=== PATIENT | male | born 1945 | race Caucasian/White ===

== ENCOUNTER 2019-05-25 10:02 | Emergency (ER) | payer MEDICARE, SELFPAY ==
[2019-05-25 10:05] VITALS: BP 111/86; PULSE 80; RESP 16; TEMP 36.8; O2SAT 96; BMI 27.4
--- NOTE | 2019-05-25 10:21 | RAD_ITS ---
STUDY: X-RAY - PELVIS REASON FOR EXAM: Male, 73 years old. PT FELL X 3 DAYS AGO, PAIN WITH MOVEMENT TECHNIQUE: One view of the pelvis was obtained. COMPARISON: None. FINDINGS: There is a non-specific bowel gas pattern. Normal visualized soft tissue structures. Normal bilateral iliac wings, sacroiliac joints and visualized sacrum. Normal visualized bilateral superior and inferior pubic rami. Normal pubic symphysis. Normal ischial tuberosities. Status post right hip arthroplasty. The prosthesis appears located. No ostial lysis to suggest loosening.. Normal visualized left femoral head. Normal left acetabulum. Normal left hip joint. RAD/Pelvis 1 or 2 Views IMPRESSION: Normal x-ray examination of the pelvis after right hip arthroplasty.. Electronically Signed: Paras Nathan MD at 11:53 EST Tel , Service support ,
--- NOTE | 2019-05-25 10:21 | RAD_ITS ---
STUDY: X-RAY - LEFT FEMUR REASON FOR STUDY: Male, 73 years old. PT FELL X 3 DAYS AGO, PAIN WITH MOVEMENT, H/O SX TECHNIQUE: 2 view(s) of the femur. COMPARISON: None. FINDINGS: Healed fracture the midshaft of the femur. Normal visualized soft tissue structure. RAD/Femur Min 2 Views IMPRESSION: No acute fracture or dislocation. Healed fracture the midshaft of the femur. Electronically Signed: Paras Nathan MD at 11:53 EST Tel , Service support ,
--- NOTE | 2019-05-25 11:49 | ED.VISSUMM ---
- ER Visit Summary Date of Service: 05/25/19 Chief Complaint: [Pain to left hip after a fall] History of Present Illness: The patient is a 73 M [does the emergency department with a fall that occurred 4 days ago. Patient states that he got tripped up by his walker and fell onto his left side. Patient struck his head but no loss of consciousness. Patient denies any neck pain. Patient states that he is able to bear weight but having pain and does not feel it is gotten much better. He denies any other injuries. Patient has had prior fracture to the left femur. She does have history of coronary artery disease, hypertension, and high cholesterol.] Physical Examination: [HEENT-PERRLA, EOMI. Cranial nerves II through XII grossly intact. TMs clear. Mucous membranes moist. No adenopathy. Cardiovascular-regular rate and rhythm without murmur or ectopy Lungs-clear to auscultation, chest wall stable without crepitus or subcu emphysema Abdomen-normoactive bowel sounds, soft, nontender, no rebound or rigidity, no peritoneal signs. Extremities-intact ?4, normal range of motion, normal pulses. Left hip-patient does have tenderness palpation over the hip joint without any evidence of ecchymosis or bruising. There is no hematoma. Minimal pain with range of motion. Neurovascular intact distally. No shortening or external rotation noted.] Test Results: [X-rays of the left femur and pelvis obtained read by myself as degenerative changes with no signs of fracture. Official report from radiology pending.] Emergency Department Course and Treatment: [] Treatment Plan: [Has oxycodone at home for pain. He is to continue with that. Patient to follow-up with his primary care physician in 5 to 7 days.] Disposition: Discharged home in stable condition] Impression: [Mechanical fall Contusion left hip] This note was generated with [employer] dictation software. It may contain incorrect words, spelling, and punctuation that were not noted in review of the chart prior to signing ED Disposition - Plan for ED Patient: Referrals: Mauro Palomino [Other]
--- NOTE | 2019-05-25 11:52 | ED.DEP ---
ED Disposition - Plan for ED Patient: Instructions: Hip Contusion Referrals: Mauro Palomino [Other] - 5-7 Days
[2019-05-25 12:27] VITALS: PULSE 82; RESP 16; RESP 18; O2SAT 97
== END 2019-05-25 12:29 | disposition home or self-care (01) ==
PROVIDERS: Emergency Provider Emergency Medicine
DX: S70.02XA Contusion of left hip, initial encounter (principal); W01.0XXA Fall on same level from slipping, tripping and stumbling without subsequent striking against object, initial encounter; Y93.89 Activity, other specified; Y92.9 Unspecified place or not applicable; I25.10 Atherosclerotic heart disease of native coronary artery without angina pectoris; I10 Essential (primary) hypertension; E78.00 Pure hypercholesterolemia, unspecified; Z95.1 Presence of aortocoronary bypass graft
CPT/HCPCS: 72170; 73552; 99282

== ENCOUNTER 2019-10-25 19:53 | Inpatient (IN) | payer MEDICARE, SELFPAY ==
[2019-10-25 20:11] VITALS: BP 123/56; PULSE 92; RESP 16; TEMP 36.8; O2SAT 97
[2019-10-25 21:08] VITALS: BMI 25.7
[2019-10-25 21:13] VITALS: BMI 25.7
[2019-10-25] MEDS: oxyCODONE 5 MG Tablet 10 MG PO (21:37)
--- NOTE | 2019-10-25 21:40 | NURSING ---
Patient wishes to be full code.
[2019-10-25] MEDS: Zolpidem Tartrate 5 MG Tablet PO (21:58)
--- NOTE | 2019-10-25 22:01 | PCM.HP.STD ---
Problem List (1) Debility Status: Acute (2) Post-traumatic osteoarthritis of left knee Status: Chronic (3) Muscle spasm Status: Chronic (4) Insomnia Status: Chronic (5) Tobacco abuse Status: Chronic (6) BPH (benign prostatic hyperplasia) Status: Chronic (7) Chronic pain Status: Chronic (8) Left foot drop Status: Chronic (9) Coronary artery disease Status: Chronic (10) Hypertension Status: Chronic (11) Hyperlipidemia Status: Chronic (12) GERD (gastroesophageal reflux disease) Status: Chronic History of Present Illness Date of Admission: 10/25/19 Chief Complaint: Here for rehabilitation, strengthening, prior to discharge home with family. The patient is a 74 year old Male with below past medical history significant for post-traumatic osteoarthritis of left knee. Pain progressively worse, failed conservative therapy, failed steroid injection. 10/20/2019 Dr. Estrada performed left total knee arthroplasty. Postoperative course uncomplicated. Past Medical History Past Medical History (Chronic Problems): Chronic Problems Post-traumatic osteoarthritis of left knee (Chronic) Muscle spasm (Chronic) Insomnia (Chronic) Tobacco abuse (Chronic) BPH (benign prostatic hyperplasia) (Chronic) Chronic pain (Chronic) Left foot drop (Chronic) Coronary artery disease (Chronic) Hypertension (Chronic) Hyperlipidemia (Chronic) GERD (gastroesophageal reflux disease) (Chronic) Allergies No Known Allergies Allergy (Verified 05/25/19 10:05) Home Medications: Ambulatory Orders Medication Instructions Recorded Atorvastatin Calcium 10 mg PO DAILY 05/25/19 Cyclobenzaprine HCl 10 mg PO Q8H PRN PRN 05/25/19 Metoprolol Tartrate 25 mg PO BID 05/25/19 Tamsulosin HCl 0.4 mg PO DAILY 05/25/19 Tizanidine HCl 4 mg PO BID 05/25/19 Zolpidem Tartrate [Ambien] 10 mg PO QHS 05/25/19 Aspirin E.C. [Ecotrin] 81 mg PO DAILY@0800 10/25/19 Docusate Sodium [Colace] 100 mg PO BID PRN PRN 10/25/19 Enoxaparin [Lovenox] 40 mg SQ DAILY 10/25/19 Indomethacin [Indomethacin ER] 75 mg PO DAILY 10/25/19 Multivitamin 1 ea PO DAILY 10/25/19 Prevacid 15mg 15 mg PO DAILY 10/25/19 Red Yeast Rice 600 mg PO DAILY 10/25/19 Tramadol HCl [Ultram] 50 mg PO Q4H PRN PRN 10/25/19 Vitamin D 1,000 unit PO DAILY 10/25/19 Surgical History: colectomy - Partial., coronary bypass surgery - x 4., herniorrhaphy - Bilateral inguinal, Ventral., total hip arthroplasty - Right., total knee arthroplasty - Left., TURP, - - Colostomy reversal, left reverse total shoulder replacement, lumbar fusion, cervical fusion, bilateral blepharoplasty. Psychiatric History: No pertinent psych hx Lives: With Family - Lives in cousin's basement. Smoking Status: Current every day smoker Tobacco Use: Cigarettes - 1.5 pack per day. Alcohol: None Drugs: None - *Family History Maternal History Items: No pertinent history Paternal History Items: No pertinent history Review of Systems Constitutional: Denies: Chills, Fever, Weight Change HEENT: Denies: Head Aches, Sinus Congestion, Sinus Drainage Cardiovascular: Denies: Chest Pain, Palpitations Respiratory: Denies: Cough, Shortness of breath at rest, Sputum production Gastrointestinal: Denies: Abdominal Pain, Nausea, Vomiting Genitourinary: Denies: Dysuria Musculoskeletal: Denies: Joint Pain, Joint Tenderness Skin: Denies: Rash, Wounds Neurological: Denies: Numbness, Tingling, Focal weakness Psychiatric: Denies: Anxiety, Depression, Homicidal Ideations, Suicidal Ideations Hematologic/ Lymphatic: Denies: Easy Bruising, Easy Bleeding VTE Information - Inpt Only VTE Present on Admission: No VTE Mechan Device Prophylaxis: Knee High YENIFER Hose VTE Pharm Prophylaxis ordered?: Yes Patient Problems: Active and Suspected Problems Debility (Acute) - Physical Exam Vitals/I&O's: Vital Signs Temp Pulse Resp BP Pulse Ox 98.3 F 92 16 123/56 H 97 10/25/19 20:11 10/25/19 20:11 10/25/19 20:11 10/25/19 20:11 10/25/19 20:11 Oxygen Delivery Method Room Air Weight: 72.32 kg Body Mass Index (BMI) 25.7 General: Alert, Oriented x3, Cooperative HEENT: Atraumatic, PERRLA, EOMI, Normocephalic Neck: Supple, No JVD, Negative Carotid Bruits Lungs: Clear to auscultation, Normal air movement Cardiovascular: Regular rate, No murmurs Abdomen: Bowel Sounds Present, Soft, Non Tender Extremities: No edema, Capillary Refill Less than 3 Seconds, - - Left knee dressed. Skin: No rashes, No breakdown Musculoskeletal: No Tenderness to Palpation of Joints or Extremities Neurological: Cranial nerves II-XII grossly intact Psych/Mental Status: Normal Affect, Appropriate Laboratory Results 10/25/19 21:35: COVID-19 (CARIDAD) Pending Current Medications Aspirin (Ecotrin) 81 mg PO DAILY@0800 COUNTS INCLUDE 234 BEDS AT THE [facility] Atorvastatin Calcium (Lipitor) 10 mg PO DAILY@2200 COUNTS INCLUDE 234 BEDS AT THE [facility] Cholecalciferol (Vitamin D (25mcg)) 1,000 unit PO DAILY COUNTS INCLUDE 234 BEDS AT THE [facility] Cyclobenzaprine HCl (Flexeril) 10 mg PO Q8H PRN PRN PRN Reason: MUSCLE SPASM Docusate Sodium (Colace) 100 mg PO BID PRN PRN PRN Reason: Constipation Enoxaparin Sodium (Lovenox) 40 mg SC DAILY COUNTS INCLUDE 234 BEDS AT THE [facility] Stop: 11/03/19 23:59 Indomethacin (Indocin) 25 mg PO TIDCM COUNTS INCLUDE 234 BEDS AT THE [facility] Metoprolol Tartrate (Lopressor (Beta Zakia)) 25 mg PO BID COUNTS INCLUDE 234 BEDS AT THE [facility] Multivitamins ([facility]itamin) [facility] Oxycodone HCl (Oxyir) 10 mg PO Q6H PRN PRN PRN Reason: Pain Score 6-10/10 Last Admin: 10/25/19 21:37 Dose: 10 mg Documented by: Pantoprazole Sodium (Protonix) 20 mg PO DAILY COUNTS INCLUDE 234 BEDS AT THE [facility] Tamsulosin HCl (Flomax) 0.4 mg PO DAILY COUNTS INCLUDE 234 BEDS AT THE [facility] Tizanidine HCl (Zanaflex) 4 mg PO BID COUNTS INCLUDE 234 BEDS AT THE [facility] Tuberculin PPD (Tubersol, Aplisol, Ppd) 5 tu ID X1 ONE Stop: 10/26/19 10:01 Tuberculin PPD (Tubersol, Aplisol, Ppd) 5 tu ID X1 ONE Stop: 11/02/19 10:01 Zolpidem Tartrate (Ambien (Generic)) 5 mg PO QHS COUNTS INCLUDE 234 BEDS AT THE [facility] Last Admin: 10/25/19 21:58 Dose: 5 mg Documented by: Assessment/Plan All Active Problems Debility (Acute) 74 year old male with below past medical history hospitalized for left total knee replacement 10/20/[address] Estrada, admitted to TCU with debility, here for rehabilitation, strengthening, prior to discharge home with family. Debility - PT/OT. Pain - Tylenol 1000MG Q6H PRN pain (1-5), Oxycodone 10MG Q6H PRN pain (6-10). Bowel - Miralax 17GM daily, Senna/colace 2 tablets twice daily, Dulcolax 10MG NM daily PRN. Adult immunization - Administer Prevnar 13, Pneumovax 23, Fluzone as appropriate. DVT prophylaxis - Lovenox 40MG SC daily. Coronary Artery Disease - Metoprolol 25MG twice daily, Aspirin 81MG daily. Hyperlipidemia - Atorvastatin 10MG QHS. Vitamin D deficiency - D3 1000IU daily. Muscle spasm - Zanaflex 4MG BID, Flexeril 10MG Q8H PRN. Osteoarthritis - Indocin 25MG TIDCM. Nutrition - MVI daily. GERD - Pantoprazole 20MG daily. BPH - Tamsulosin 0.4MG daily. Insomnia - Zolpidem 5MG QHS.
[2019-10-25 22:56] LABS: Probe Check PASS; Specimen Processing Control PASS
[2019-10-25 23:00] VITALS: PULSE 78; RESP 16; O2SAT 98
[2019-10-26] MEDS: oxyCODONE 5 MG Tablet 10 MG PO ×3 (03:51→18:00)
[2019-10-26 05:44] LABS: Absolute Lymphocyte Count 1.82 X10^3/uL (0.83-4.51); Absolute Neutrophil Count 3.8 X10^3/uL (2.0-7.7); Basophil# 0.04 X10^3/uL; Basophil% 0.6 % (0-1); Eosinophil# 0.01 X10^3/uL; Eosinophils% 0.2 % (0-5); Hematocrit 28.1 % (40-54); Hemoglobin 9.6 g/dL (13.0-16.5); Lymphocyte # 1.82 X10^3/ul (4.0); Mean Corp Hgb Conc 34.2 g/dL (32-36); Mean Corpuscular Hgb 30.9 pg (27.0-32.0); Mean Corpuscular Volume 90.4 fL (80-94); Mean Platelet Vol. 9.4 fl (6.2-12.0); Monocyte# 0.63 X10^3/uL; NRBC Flagged by Analyzer 0 % (0-5); Neutrophil # 3.75 X10^3/uL (2.7-7.7); Neutrophil % 59.9 % (47-70); Platelet Count 154 K/mm3 (150-450); RBC Distribution Width CV 15.1 % (11.6-14.6); RBC Distribution Width SD 47.4 fl (35.1-43.9); Red Blood Count 3.11 M/mm3 (4.6-6.2); White Blood Count 6.3 K/mm3 (4.4-11.0)
[2019-10-26 06:09] LABS: Anion Gap 5 (5-15); BUN 15 mg/dL (7-18); BUN/Creat Ratio 21.9 RATIO (10-20); Calcium,Total 8.4 mg/dL (8.5-10.1); Chloride 105 mmol/L (98-107); Creatinine, Serum 0.69 mg/dL (0.70-1.30); EST Glomerular Filtration Rate 119 mL/min (>60); Est Glom Filt Rate - Afr Amer 144 mL/min (>60); Estimated Creatinine Clearance 56.71 ml/min; Glucose 96 mg/dL (74-106); Potassium 3.3 mmol/L (3.5-5.1); Sodium Level 137 mmol/L (136-145)
[2019-10-26 06:26] VITALS: BP 156/78; PULSE 99; RESP 16; TEMP 36.9; O2SAT 99
[2019-10-26 06:30] VITALS: BP 156/78; PULSE 99
[2019-10-26] MEDS: Metoprolol Tartrate 25 MG Tablet PO (06:30)
[2019-10-26] MEDS: Senna/Docusate Sodium 1 Tablet 2 TABLET PO ×2 (06:30→17:38)
[2019-10-26] MEDS: Pantoprazole Sodium 20 MG Tablet PO (06:30)
[2019-10-26] MEDS: Atorvastatin Calcium 10 MG Tablet PO (06:30)
[2019-10-26] MEDS: tiZANidine HCl 2 MG Tablet 4 MG PO ×2 (06:30→17:38)
[2019-10-26] MEDS: Tamsulosin HCl 0.4 MG Capsule PO (06:30)
[2019-10-26] MEDS: Polyethylene Glycol 3350 17 GM PACKET PO (06:36)
[2019-10-26] MEDS: Enoxaparin 40 MG/0.4 ML Syringe SC (06:44)
--- NOTE | 2019-10-26 06:51 | NURSING ---
Pt states he left tubing for his personal polar care machine at [facility]. 8th floor called by this RN and they took a call back number for if the item was found.
[2019-10-26] MEDS: Multivitamins,Therapeutic Tablet 1 TABLET PO (07:48)
[2019-10-26] MEDS: Indomethacin 25 MG Capsule PO ×3 (07:48→17:38)
[2019-10-26] MEDS: Aspirin E.C. 81 MG Tablet PO (07:48)
[2019-10-26] MEDS: Iron Polysaccharide Complex 150 MG CAPSULE PO (08:35)
--- NOTE | 2019-10-26 09:45 | PCM.PN.RX ---
<Kaylynn Todd M - Last Filed: 10/26/19 09:45> Progress Note - Pharmacy Subjective: TCU ADMISSION Objective: Allergies No Known Allergies Allergy (Verified 05/25/19 10:05) Current Medications Generic Name Dose Route Start Last Admin Trade Name Freq PRN Reason Stop Dose Admin Acetaminophen 1,000 mg 10/25/19 22:12 Tylenol PO Q6H PRN PRN Pain Score 1-5/10 Aspirin 81 mg 10/26/19 08:00 10/26/19 07:48 Ecotrin PO 81 mg DAILY@0800 RAJIV Administration Atorvastatin Calcium 10 mg 10/26/19 06:00 10/26/19 06:30 Lipitor PO 10 mg DAILY@0600 RAJIV Administration Bisacodyl 10 mg 10/25/19 22:13 Dulcolax RECTAL DAILY PRN Constipation Cholecalciferol 1,000 unit 10/26/19 06:00 10/26/19 06:30 Vitamin D (25mcg) PO 1,000 unit DAILY RAJIV Administration Cyclobenzaprine HCl 10 mg 10/25/19 20:55 Flexeril PO Q8H PRN PRN MUSCLE SPASM Enoxaparin Sodium 40 mg 10/26/19 06:00 10/26/19 06:44 Lovenox SC 11/03/19 06:01 40 mg DAILY RAJIV Administration Indomethacin 25 mg 10/26/19 07:45 10/26/19 07:48 Indocin PO 25 mg TIDCM RAJIV Administration Metoprolol Tartrate 25 mg 10/26/19 06:00 10/26/19 06:30 Lopressor (Beta Zakia) PO 25 mg BID RAJIV Administration Multivitamins 1 tablet 10/26/19 08:00 10/26/19 07:48 Multivitamin PO 1 tablet DAILYCM RAJIV Administration Oxycodone HCl 10 mg 10/25/19 21:09 10/26/19 03:51 Oxyir PO 10 mg Q6H PRN PRN Administration Pain Score 6-10/10 Pantoprazole Sodium 20 mg 10/26/19 06:00 10/26/19 06:30 Protonix PO 20 mg DAILY RAJIV Administration Polyethylene Glycol 17 gm 10/26/19 06:00 10/26/19 06:36 Miralax PO 17 gm DAILY RAJIV Administration Polysaccharide Iron Complex 150 mg 10/26/19 08:00 10/26/19 08:35 Ferrex 150 PO 150 mg DAILYCM RAJIV Administration Potassium Chloride 20 meq 10/27/19 08:00 K-Dur PO DAILYCM RAJIV Senna/Docusate Sodium 2 tablet 10/26/19 06:00 10/26/19 06:30 Senokot-S, Pamela-Colace PO 2 tablet BID RAJIV Administration Tamsulosin HCl 0.4 mg 10/26/19 06:00 10/26/19 06:30 Flomax PO 0.4 mg DAILY RAJIV Administration Tizanidine HCl 4 mg 10/26/19 06:00 10/26/19 06:30 Zanaflex PO 4 mg BID RAJIV Administration Tuberculin PPD 5 tu 10/26/19 10:00 Tubersol, Aplisol, Ppd ID 10/26/19 10:01 X1 ONE Tuberculin PPD 5 tu 11/02/19 10:00 Tubersol, Aplisol, Ppd ID 11/02/19 10:01 X1 ONE Zolpidem Tartrate 5 mg 10/25/19 22:00 10/25/19 21:58 Ambien (Generic) PO 5 mg QHS RAJIV Administration Problem List Debility (Acute) Post-traumatic osteoarthritis of left knee (Chronic) Muscle spasm (Chronic) Insomnia (Chronic) Tobacco abuse (Chronic) BPH (benign prostatic hyperplasia) (Chronic) Chronic pain (Chronic) Left foot drop (Chronic) Coronary artery disease (Chronic) Hypertension (Chronic) Hyperlipidemia (Chronic) GERD (gastroesophageal reflux disease) (Chronic) Vital Signs Temp Pulse Resp BP Pulse Ox 98.4 F 99 16 156/78 H 99 10/26/19 06:26 10/26/19 06:30 10/26/19 06:26 10/26/19 06:30 10/26/19 06:26 Oxygen Delivery Method Room Air Weight: 72.32 kg Body Mass Index (BMI) 25.7 Sodium 137 mmol/L (136-145) 10/26/19 05:10 Potassium 3.3 mmol/L (3.5-5.1) L 10/26/19 05:10 Chloride 105 mmol/L (98-107) 10/26/19 05:10 Carbon Dioxide 27.0 mmol/L (21.0-32.0) 10/26/19 05:10 Anion Gap 5 (5-15) 10/26/19 05:10 BUN 15 mg/dL (7-18) 10/26/19 05:10 Creatinine 0.69 mg/dL (0.70-1.30) L 10/26/19 05:10 Est GFR (MDRD) Af Amer 144 mL/min (>60) 10/26/19 05:10 Est GFR (MDRD) Non-Af 119 mL/min (>60) 10/26/19 05:10 BUN/Creatinine Ratio 21.9 RATIO (10-20) H 10/26/19 05:10 Glucose 96 mg/dL (74-106) 10/26/19 05:10 Assessment/Plan: 1. Pain: Tylenol 1000mg PO Q6h PRN Pain 1-5, Oxycodone 10mg PO Q6h PRN pain 6-10. Please continue to monitor for increased/decreased pain, PRN medication usage. *2. Osteoarthritis: Indocin 25mg PO TIDCM. This medication is a [employer] drug, please evaluate use and assess if another NSAID could be used for this patient, thanks. 3. CAD: Lopressor 25mg PO BID, Aspirin 81mg PO Daily. Please continue to monitor BP, pulse, S/S bleeding/bruising. 4. HLD: Lipitor 10mg PO Daily. Please continue to monitor lipid panels at least annually or sooner if clinically indicated. *5. Muscle Spasm: Zanaflex 4mg PO BID. This medication is a [employer] medication, Zanaflex may cause further urinary retention and lead to possible infection. Please evaluate use and consider another muscle relaxant if clinically needed, thank you. 6. BPH: Flomax 0.4mg PO Daily. Please continue to monitor for medication effectiveness, urinary retention. 7. DVT Prophylaxis: Lovenox 40mg SC Daily thru 11/03/19. Please monitor renal function, S/S bleeding/bruising. 8. GERD: Protonix 20mg PO daily. Please continue to monitor for medication effectiveness. 9. Hypokalemia: K-Dur 20mEq PO Daily. Last K = 3.3 on 10/25. Please continue to monitor potassium levels as clinically indicated. 10. General Wellness: Ferrex 150mg PO Daily, MVI 1 tab PO Daily. Please continue to monitor iron panels as clinically indicated. Psychotropic Medications: 11. Insomnia: Ambien 5mg PO QHS. Please consider a GDR by 03/2020 if clinically indicated, thank you. Unnecessary Medications: None Bowel Regimen: Miralax 17g PO daily, Senna/Docusate 2 tab PO BID, Bisacodyl 10mg Rectal Daily PRN. Please continue to monitor for increased/decreased constipation/diarrhea. Date of Note:: 10/26/19 - Provider Comments Provider responsibility: Provider responsible to enter orders to implement recommendations <James Vieira Chi - Last Filed: 10/26/19 12:01> Progress Note - Pharmacy Subjective: [] Objective: Allergies No Known Allergies Allergy (Verified 05/25/19 10:05) Current Medications Generic Name Dose Route Start Last Admin Trade Name Freq PRN Reason Stop Dose Admin Acetaminophen 1,000 mg 10/25/19 22:12 Tylenol PO Q6H PRN PRN Pain Score 1-5/10 Aspirin 81 mg 10/26/19 08:00 10/26/19 07:48 Ecotrin PO 81 mg DAILY@0800 RAJIV Administration Atorvastatin Calcium 10 mg 10/26/19 06:00 10/26/19 06:30 Lipitor PO 10 mg DAILY@0600 [facility] Administration Bisacodyl 10 mg 10/25/19 22:13 Dulcolax RECTAL DAILY PRN Constipation Cholecalciferol 1,000 unit 10/26/19 06:00 10/26/19 06:30 Vitamin D (25mcg) PO 1,000 unit DAILY RAJIV Administration Cyclobenzaprine HCl 10 mg 10/25/19 20:55 Flexeril PO Q8H PRN PRN MUSCLE SPASM Enoxaparin Sodium 40 mg 10/26/19 06:00 10/26/19 06:44 Lovenox SC 11/03/19 06:01 40 mg DAILY RAJIV Administration Indomethacin 25 mg 10/26/19 07:45 10/26/19 07:48 Indocin PO 25 mg TIDCM RAJIV Administration Metoprolol Tartrate 12.5 mg 10/29/19 06:00 Lopressor (Beta Zakia) PO BID RAJIV Multivitamins 1 tablet 10/26/19 08:00 10/26/19 07:48 Multivitamin PO 1 tablet DAILYCM RAJIV Administration Oxycodone HCl 10 mg 10/25/19 21:09 10/26/19 10:44 Oxyir PO 10 mg Q6H PRN PRN Administration Pain Score 6-10/10 Pantoprazole Sodium 20 mg 10/26/19 06:00 10/26/19 06:30 Protonix PO 20 mg DAILY RAJIV Administration Polyethylene Glycol 17 gm 10/26/19 06:00 10/26/19 06:36 Miralax PO 17 gm DAILY RAJIV Administration Polysaccharide Iron Complex 150 mg 10/26/19 08:00 10/26/19 08:35 Ferrex 150 PO 150 mg DAILYCM RAJIV Administration Potassium Chloride 20 meq 10/27/19 08:00 K-Dur PO DAILYCM RAJIV Senna/Docusate Sodium 2 tablet 10/26/19 06:00 10/26/19 06:30 Senokot-S, Pamela-Colace PO 2 tablet BID RAJIV Administration Tamsulosin HCl 0.4 mg 10/26/19 06:00 10/26/19 06:30 Flomax PO 0.4 mg DAILY RAJIV Administration Tizanidine HCl 4 mg 10/26/19 06:00 10/26/19 06:30 Zanaflex PO 4 mg BID RAJIV Administration Tuberculin PPD 5 tu 11/02/19 10:00 Tubersol, Aplisol, Ppd ID 11/02/19 10:01 X1 ONE Zolpidem Tartrate 5 mg 10/25/19 22:00 10/25/19 21:58 Ambien (Generic) PO 5 mg QHS RAJIV Administration Problem List Debility (Acute) Post-traumatic osteoarthritis of left knee (Chronic) Muscle spasm (Chronic) Insomnia (Chronic) Tobacco abuse (Chronic) BPH (benign prostatic hyperplasia) (Chronic) Chronic pain (Chronic) Left foot drop (Chronic) Coronary artery disease (Chronic) Hypertension (Chronic) Hyperlipidemia (Chronic) GERD (gastroesophageal reflux disease) (Chronic) Vital Signs Temp Pulse Resp BP Pulse Ox 98.4 F 99 16 89/51 L 99 10/26/19 06:26 10/26/19 06:30 10/26/19 06:26 10/26/19 10:20 10/26/19 06:26 Oxygen Delivery Method Room Air Weight: 70.76 kg Body Mass Index (BMI) 25.7 Sodium 137 mmol/L (136-145) 10/26/19 05:10 Potassium 3.3 mmol/L (3.5-5.1) L 10/26/19 05:10 Chloride 105 mmol/L (98-107) 10/26/19 05:10 Carbon Dioxide 27.0 mmol/L (21.0-32.0) 10/26/19 05:10 Anion Gap 5 (5-15) 10/26/19 05:10 BUN 15 mg/dL (7-18) 10/26/19 05:10 Creatinine 0.69 mg/dL (0.70-1.30) L 10/26/19 05:10 Est GFR (MDRD) Af Amer 144 mL/min (>60) 10/26/19 05:10 Est GFR (MDRD) Non-Af 119 mL/min (>60) 10/26/19 05:10 BUN/Creatinine Ratio 21.9 RATIO (10-20) H 10/26/19 05:10 Glucose 96 mg/dL (74-106) 10/26/19 05:10 Assessment/Plan: Psychotropic Medications: Unnecessary Medications: Bowel Regimen: - Provider Comments Provider responsibility: Provider responsible to enter orders to implement recommendations Provider Comments to Recommendations by Pharmacy: Agree
[2019-10-26 10:20] VITALS: BP 89/51
--- NOTE | 2019-10-26 10:20 | NURSING ---
Therapy in room, sits resident up on side of bed. Gets pale, lightheaded and pale while sitting. BP 89/51. Therapy to do light therapy on side of bed.
[2019-10-26] MEDS: Tuberculin,Purif.prot.deriv. 50 TU/ML Vial 5 ML ID (11:56)
[2019-10-26 13:10] VITALS: PULSE 80; RESP 18; O2SAT 97
--- NOTE | 2019-10-26 13:24 | CASEMGMT ---
Social Work Discussed code status with pt. Pt confirmed full code. MOLST form completed and placed in chart. Discussed DC plans. Pt is currently staying with cousins in [place]; however, he is purchasing an apartment in [place]. [address] has [address] steps to enter, pt will be living alone but nearby family. Pt is scheduled to view apt mid-next week; therefore, discharging prior to that. He will return to his cousins house until the apt is furnished and secured. Pt was independent prior, used a cane for ambulation. Pt to notify SW of date to view apt and will assist with HHC and DME needs. Explained insurance and this is a short term stay, as indicated by [facility]. Pt understood. Will continue to follow. REBEKA BorjasW
--- NOTE | 2019-10-26 14:21 | NURSING ---
Family updated on pt.
[2019-10-26 14:24] VITALS: BP 97/53; PULSE 62; RESP 14; TEMP 36.6; O2SAT 96
--- NOTE | 2019-10-26 18:02 | NURSING ---
PT stated to this nurse that he is not allergic to oxycodone and has not had a reaction to it and has been taking it for a while that pain management doctor prescribed. PT stated he had a reaction to morphine and cortisone that was given together at another facility. This nurse talked over with the rn and rn called pharmacy. RN and pharmacy gave the ok to give.
[2019-10-26] MEDS: Acetaminophen 500 MG Tablet 1000 MG PO (20:44)
[2019-10-26] MEDS: Zolpidem Tartrate 5 MG Tablet PO (20:49)
[2019-10-26] MEDS: Menthol/Lanolin/Calamine/Znox 113 GM Tube 1 APPLIC TOPICAL (20:51)
[2019-10-27] MEDS: oxyCODONE 5 MG Tablet 10 MG PO ×3 (01:31→20:50)
[2019-10-27] MEDS: Acetaminophen 500 MG Tablet 1000 MG PO (03:25)
[2019-10-27 05:00] VITALS: BP 180/79; PULSE 98; RESP 14; TEMP 36.6; O2SAT 98
[2019-10-27] MEDS: Polyethylene Glycol 3350 17 GM PACKET PO (06:29)
[2019-10-27] MEDS: Tamsulosin HCl 0.4 MG Capsule PO (06:29)
[2019-10-27] MEDS: Enoxaparin 40 MG/0.4 ML Syringe SC (06:29)
[2019-10-27] MEDS: Atorvastatin Calcium 10 MG Tablet PO (06:30)
[2019-10-27] MEDS: Pantoprazole Sodium 20 MG Tablet PO (06:30)
[2019-10-27] MEDS: Menthol/Lanolin/Calamine/Znox 113 GM Tube 1 APPLIC TOPICAL ×2 (06:30→20:52)
[2019-10-27] MEDS: Senna/Docusate Sodium 1 Tablet 2 TABLET PO ×2 (06:30→17:31)
[2019-10-27] MEDS: tiZANidine HCl 2 MG Tablet 4 MG PO ×2 (06:30→17:32)
[2019-10-27] MEDS: Indomethacin 25 MG Capsule PO ×3 (07:47→17:31)
[2019-10-27] MEDS: Aspirin E.C. 81 MG Tablet PO (07:47)
[2019-10-27] MEDS: Iron Polysaccharide Complex 150 MG CAPSULE PO (07:47)
[2019-10-27] MEDS: Multivitamins,Therapeutic Tablet 1 TABLET PO (07:47)
[2019-10-27 09:21] VITALS: BP 90/46
[2019-10-27 13:43] VITALS: BP 104/57; PULSE 88; RESP 16; TEMP 36.6; O2SAT 97
[2019-10-27 21:13] VITALS: PULSE 78; RESP 16; O2SAT 100
--- NOTE | 2019-10-27 21:43 | NURSING ---
Silverlon dressing removed from left knee per doctor order. 15 Steri strips intact to left knee no drainage or redness noted. Polar care in place at this time.
[2019-10-27] MEDS: Zolpidem Tartrate 5 MG Tablet PO (22:18)
[2019-10-28] MEDS: oxyCODONE 5 MG Tablet 10 MG PO ×4 (02:54→20:42)
[2019-10-28 05:00] VITALS: BP 174/89; PULSE 96; RESP 18; TEMP 36.8; O2SAT 97
[2019-10-28 05:55] LABS: Anion Gap 2 (5-15); BUN 24 mg/dL (7-18); Calcium,Total 8.5 mg/dL (8.5-10.1); Chloride 107 mmol/L (98-107); Creatinine, Serum 0.83 mg/dL (0.70-1.30); EST Glomerular Filtration Rate 96 mL/min (>60); Est Glom Filt Rate - Afr Amer 116 mL/min (>60); Estimated Creatinine Clearance 68.33 ml/min; Glucose 104 mg/dL (74-106); Potassium 3.8 mmol/L (3.5-5.1); Sodium Level 137 mmol/L (136-145)
[2019-10-28] MEDS: tiZANidine HCl 2 MG Tablet 4 MG PO (06:20)
[2019-10-28] MEDS: Pantoprazole Sodium 20 MG Tablet PO (06:21)
[2019-10-28] MEDS: Tamsulosin HCl 0.4 MG Capsule PO (06:21)
[2019-10-28] MEDS: Senna/Docusate Sodium 1 Tablet 2 TABLET PO ×2 (06:21→17:43)
[2019-10-28] MEDS: Enoxaparin 40 MG/0.4 ML Syringe SC (06:21)
[2019-10-28] MEDS: Atorvastatin Calcium 10 MG Tablet PO (06:23)
[2019-10-28] MEDS: Menthol/Lanolin/Calamine/Znox 113 GM Tube 1 APPLIC TOPICAL ×2 (06:27→20:43)
--- NOTE | 2019-10-28 06:28 | NURSING ---
Pt requested on 2mg of zanaflex this Am states, 'takes 2mg in the morning, 2mg in the evening, 4mg at hs. States zanaflex makes him drowsy and not want to do therapy and the 4 mg help him sleep at night. Made Rn aware.
[2019-10-28] MEDS: Indomethacin 25 MG Capsule PO ×3 (07:40→17:43)
[2019-10-28] MEDS: Aspirin E.C. 81 MG Tablet PO (07:40)
[2019-10-28] MEDS: Multivitamins,Therapeutic Tablet 1 TABLET PO (07:40)
[2019-10-28] MEDS: Iron Polysaccharide Complex 150 MG CAPSULE PO (07:41)
[2019-10-28 09:31] VITALS: PULSE 94; RESP 16; O2SAT 94
[2019-10-28 14:02] VITALS: BP 141/80; PULSE 91; RESP 17; TEMP 36.8; O2SAT 98
[2019-10-28] MEDS: tiZANidine HCl 2 MG Tablet 8 MG PO (20:44)
[2019-10-28] MEDS: Zolpidem Tartrate 5 MG Tablet PO (20:48)
[2019-10-29] MEDS: oxyCODONE 5 MG Tablet 10 MG PO ×4 (01:56→20:11)
[2019-10-29 03:33] VITALS: BP 93/54; PULSE 73; RESP 16; TEMP 36.6; O2SAT 98
[2019-10-29] MEDS: Tamsulosin HCl 0.4 MG Capsule PO (06:10)
[2019-10-29] MEDS: Senna/Docusate Sodium 1 Tablet 2 TABLET PO (06:10)
[2019-10-29] MEDS: Enoxaparin 40 MG/0.4 ML Syringe SC (06:10)
[2019-10-29 06:12] VITALS: BP 132/74; PULSE 77
[2019-10-29] MEDS: Metoprolol Tartrate 25 MG Tablet 12.5 MG PO ×2 (06:12→17:34)
[2019-10-29] MEDS: Menthol/Lanolin/Calamine/Znox 113 GM Tube 1 APPLIC TOPICAL ×2 (06:12→20:18)
[2019-10-29] MEDS: Atorvastatin Calcium 10 MG Tablet PO (06:12)
[2019-10-29] MEDS: Pantoprazole Sodium 20 MG Tablet PO (06:12)
[2019-10-29] MEDS: Indomethacin 25 MG Capsule PO ×3 (08:58→17:35)
[2019-10-29] MEDS: Aspirin E.C. 81 MG Tablet PO (08:58)
[2019-10-29] MEDS: Iron Polysaccharide Complex 150 MG CAPSULE PO (08:58)
[2019-10-29] MEDS: Multivitamins,Therapeutic Tablet 1 TABLET PO (08:58)
--- NOTE | 2019-10-29 12:02 | MDS.RN ---
Pain interview for jillian 11/01/19 completed.
[2019-10-29 13:56] VITALS: BP 138/83; PULSE 84; RESP 16; TEMP 36.5
[2019-10-29 17:34] VITALS: BP 138/83; PULSE 84
[2019-10-29 20:05] VITALS: PULSE 88; RESP 16; O2SAT 98
[2019-10-29] MEDS: tiZANidine HCl 2 MG Tablet 8 MG PO (20:14)
[2019-10-29] MEDS: Zolpidem Tartrate 5 MG Tablet PO (20:24)
[2019-10-30] MEDS: oxyCODONE 5 MG Tablet 10 MG PO ×4 (02:02→19:54)
[2019-10-30 05:00] VITALS: BP 115/60; PULSE 64; RESP 16; TEMP 36.7; O2SAT 95
[2019-10-30 05:21] VITALS: BP 115/60; PULSE 64
[2019-10-30] MEDS: Enoxaparin 40 MG/0.4 ML Syringe SC (05:21)
[2019-10-30] MEDS: Metoprolol Tartrate 25 MG Tablet 12.5 MG PO (05:21)
[2019-10-30] MEDS: Pantoprazole Sodium 20 MG Tablet PO (05:21)
[2019-10-30] MEDS: Senna/Docusate Sodium 1 Tablet 2 TABLET PO ×2 (05:21→18:10)
[2019-10-30] MEDS: Atorvastatin Calcium 10 MG Tablet PO (05:21)
[2019-10-30] MEDS: Tamsulosin HCl 0.4 MG Capsule PO (05:22)
[2019-10-30] MEDS: Menthol/Lanolin/Calamine/Znox 113 GM Tube 1 APPLIC TOPICAL ×2 (05:29→19:57)
[2019-10-30] MEDS: Aspirin E.C. 81 MG Tablet PO (08:11)
[2019-10-30] MEDS: Iron Polysaccharide Complex 150 MG CAPSULE PO (08:11)
[2019-10-30] MEDS: Indomethacin 25 MG Capsule PO ×3 (08:11→18:09)
[2019-10-30] MEDS: Multivitamins,Therapeutic Tablet 1 TABLET PO (08:12)
[2019-10-30 10:00] VITALS: PULSE 84; RESP 16; O2SAT 98
[2019-10-30 14:08] VITALS: BP 120/62; PULSE 75; RESP 15; TEMP 36.9; O2SAT 96
[2019-10-30] MEDS: tiZANidine HCl 2 MG Tablet 8 MG PO (19:54)
[2019-10-30] MEDS: Zolpidem Tartrate 5 MG Tablet PO (19:55)
[2019-10-31] MEDS: oxyCODONE 5 MG Tablet 10 MG PO ×4 (02:08→20:45)
[2019-10-31 05:00] VITALS: BP 120/73; PULSE 80; RESP 16; TEMP 36.9; O2SAT 95
[2019-10-31 06:32] VITALS: BP 120/73; PULSE 80
[2019-10-31] MEDS: Metoprolol Tartrate 25 MG Tablet 12.5 MG PO ×2 (06:32→17:16)
[2019-10-31] MEDS: Atorvastatin Calcium 10 MG Tablet PO (06:32)
[2019-10-31] MEDS: Enoxaparin 40 MG/0.4 ML Syringe SC (06:32)
[2019-10-31] MEDS: Tamsulosin HCl 0.4 MG Capsule PO (06:33)
[2019-10-31] MEDS: Senna/Docusate Sodium 1 Tablet 2 TABLET PO ×2 (06:33→17:16)
[2019-10-31] MEDS: Pantoprazole Sodium 20 MG Tablet PO (06:34)
[2019-10-31] MEDS: Menthol/Lanolin/Calamine/Znox 113 GM Tube 1 APPLIC TOPICAL ×2 (06:38→20:49)
[2019-10-31] MEDS: Aspirin E.C. 81 MG Tablet PO (08:17)
[2019-10-31] MEDS: Multivitamins,Therapeutic Tablet 1 TABLET PO (08:17)
[2019-10-31] MEDS: Indomethacin 25 MG Capsule PO ×3 (08:17→17:16)
[2019-10-31] MEDS: Iron Polysaccharide Complex 150 MG CAPSULE PO (08:17)
[2019-10-31] MEDS: Acetaminophen 500 MG Tablet 1000 MG PO (11:48)
[2019-10-31 14:11] VITALS: BP 130/65; PULSE 76; RESP 16; TEMP 36.8; O2SAT 96
[2019-10-31 17:16] VITALS: PULSE 75
[2019-10-31] MEDS: Zolpidem Tartrate 5 MG Tablet PO (20:45)
[2019-10-31] MEDS: tiZANidine HCl 2 MG Tablet 8 MG PO (20:46)
[2019-10-31 20:50] VITALS: PULSE 80; RESP 16
[2019-11-01] MEDS: oxyCODONE 5 MG Tablet 10 MG PO ×4 (01:58→20:22)
--- NOTE | 2019-11-01 02:06 | NURSING ---
Given gel pack, warmed up in microwave per directions for neck per pt request.
[2019-11-01 05:00] VITALS: BP 151/75; PULSE 80; RESP 16; TEMP 36.7; O2SAT 97
[2019-11-01 05:37] VITALS: BP 151/75; PULSE 80
[2019-11-01] MEDS: Senna/Docusate Sodium 1 Tablet 2 TABLET PO ×2 (05:37→17:38)
[2019-11-01] MEDS: Polyethylene Glycol 3350 17 GM PACKET PO (05:37)
[2019-11-01] MEDS: Metoprolol Tartrate 25 MG Tablet 12.5 MG PO ×2 (05:37→17:38)
[2019-11-01] MEDS: Pantoprazole Sodium 20 MG Tablet PO (05:37)
[2019-11-01] MEDS: Enoxaparin 40 MG/0.4 ML Syringe SC (05:38)
[2019-11-01] MEDS: Tamsulosin HCl 0.4 MG Capsule PO (05:38)
[2019-11-01] MEDS: Atorvastatin Calcium 10 MG Tablet PO (05:38)
[2019-11-01] MEDS: Menthol/Lanolin/Calamine/Znox 113 GM Tube 1 APPLIC TOPICAL ×2 (05:43→20:23)
[2019-11-01] MEDS: Indomethacin 25 MG Capsule PO ×3 (08:48→17:38)
[2019-11-01] MEDS: Iron Polysaccharide Complex 150 MG CAPSULE PO (08:48)
[2019-11-01] MEDS: Aspirin E.C. 81 MG Tablet PO (08:48)
[2019-11-01] MEDS: Multivitamins,Therapeutic Tablet 1 TABLET PO (08:48)
[2019-11-01 10:50] VITALS: PULSE 87; RESP 18; O2SAT 94
[2019-11-01] MEDS: Acetaminophen 500 MG Tablet 1000 MG PO (10:54)
--- NOTE | 2019-11-01 12:49 | NURSING ---
pt stated he updates family
--- NOTE | 2019-11-01 13:02 | CASEMGMT ---
Social Work Spoke with pt about request to DC. IDT agreeable to DC home 11/02. Pt requesting outpatient therapy at [facility]. Referral made for PT/OT. No DME needs. REBEKA BorjasW
[2019-11-01 14:01] VITALS: BP 134/76; PULSE 96; RESP 16; TEMP 36.2; O2SAT 91
[2019-11-01 17:38] VITALS: BP 134/76; PULSE 96
[2019-11-01] MEDS: Zolpidem Tartrate 5 MG Tablet PO (20:22)
[2019-11-01] MEDS: tiZANidine HCl 2 MG Tablet 8 MG PO (20:22)
--- NOTE | 2019-11-01 21:12 | DCINST_ITS ---
- Discharge Diagnoses Current Active Problems: Current Active and Chronic Problems Debility (Acute) Post-traumatic osteoarthritis of left knee (Chronic) Muscle spasm (Chronic) Insomnia (Chronic) Tobacco abuse (Chronic) BPH (benign prostatic hyperplasia) (Chronic) Chronic pain (Chronic) Left foot drop (Chronic) Coronary artery disease (Chronic) Hypertension (Chronic) Hyperlipidemia (Chronic) GERD (gastroesophageal reflux disease) (Chronic) You will use the following diet at home:: No restrictions, Regular, Other Your liquids should be the consistency of: Regular/Thin Discharge Activity: Return to Normal Activity, May Shower, Use Walker Weight Bearing Status: Weight bearing as tolerated Call your doctor if you observe: Fever of 101 or Higher, Inability to urinate, Inability to have a bowel movement, Shortness of breath, Chest pain, Uncontrolled pain Allergies/Adverse Reactions: Allergies cortisone Allergy (Verified 10/26/19 14:36) PT UNSURE OF REACTION morphine Allergy (Verified 10/26/19 14:37) PT UNSURE OF REACTION Medications to take at Discharge Atorvastatin Calcium 10 mg PO DAILY 05/25/19 Metoprolol Tartrate 25 mg PO BID 05/25/19 Tamsulosin HCl 0.4 mg PO DAILY 05/25/19 Tizanidine HCl 4 mg PO BID 05/25/19 Zolpidem Tartrate [Ambien] 10 mg PO QHS 05/25/19 Aspirin E.C. [Ecotrin] 81 mg PO DAILY@0800 10/25/19 Multivitamin 1 ea PO DAILY 10/25/19 Prevacid 15mg 15 mg PO DAILY 10/25/19 Vitamin D 1,000 unit PO DAILY 10/25/19 Acetaminophen [Tylenol] 1,000 mg PO Q6H PRN PRN tablet 11/01/19 Cyclobenzaprine HCl 10 mg PO Q8H PRN PRN #30 tab 11/01/19 Indomethacin [Indomethacin ER] 75 mg PO DAILY #30 11/01/19 Iron Polysaccharide Complex [Ferrex 150] 150 mg PO DAILYCM #30 cap 11/01/19 Menthol/Lanolin/Calamine/Znox [Calmoseptine Ointment] 1 applic TOPICAL 0600,2200 tube 11/01/19 Oxycodone [Oxyir] 10 mg PO Q6H 7 Days #56 tab 11/01/19 Polyethylene Glycol 3350 [Miralax] 17 gm PO DAILY #30 packet 11/01/19 Potassium Chloride [K-Dur] 20 meq PO DAILYCM #30 tab 11/01/19 Senna/Docusate Sodium [Senokot-S] 2 tab PO BID #120 tab 11/01/19 The following prescriptions were given: Cyclobenzaprine HCl 10 mg PO Q8H PRN PRN #30 tab PRN Reason: Muscle Spasm Transmission Status: Pending to [facility] [place] [address] Iron Polysaccharide Complex [Ferrex 150] 150 mg PO DAILYCM #30 cap Transmission Status: Pending to [facility] [place] [address] Indomethacin [Indomethacin ER] 75 mg PO DAILY #30 Potassium Chloride [K-Dur] 20 meq PO DAILYCM #30 tab Transmission Status: Pending to [facility] [place] [address] Polyethylene Glycol 3350 [Miralax] 17 gm PO DAILY #30 packet Transmission Status: Pending to [facility] [place] [address] Oxycodone [Oxyir] 10 mg PO Q6H 7 Days #56 tab Prescription Printed Senna/Docusate Sodium [Senokot-S] 2 tab PO BID #120 tab Transmission Status: Pending to [facility] [place] [address] Primary Care Physician: Mauro Palomino [Other] Please follow up with your Primary Care Physician in: 1 week. Test Results: Test results from this visit will be discussed in further detail at your follow- up appointment, if applicable. Please Follow Up With: [facility] When: 2 weeks. Proposed Discharge Date: 11/03/19
--- NOTE | 2019-11-01 21:13 | DS.PCM_ITS ---
Discharge Date and Diagnosis - Problem List Patient Problems: Active and Suspected Problems Debility (Acute) Date of Admission: 10/25/19 Date of Discharge: 11/03/19 - Primary Discharge Diagnosis Acute Problems: Active Problems Debility (Acute) - Secondary Discharge Diagnosis Chronic Problems: Chronic Problems Post-traumatic osteoarthritis of left knee (Chronic) Muscle spasm (Chronic) Insomnia (Chronic) Tobacco abuse (Chronic) BPH (benign prostatic hyperplasia) (Chronic) Chronic pain (Chronic) Left foot drop (Chronic) Coronary artery disease (Chronic) Hypertension (Chronic) Hyperlipidemia (Chronic) GERD (gastroesophageal reflux disease) (Chronic) Hospital Course and Treatment Imaging Results: 10/25/19 20:54 Diet: Regular Diet Operations: None Procedures: None Summary of Care Provided: The patient is a 74 year old Male with below past medical history hospitalized for left total knee replacement 10/20/[address] Estrada, admitted to TCU with debility, here for rehabilitation, strengthening, prior to discharge home with family. Discharge home with family, [facility] outpatien PT/OT. Patient Problems: Active and Suspected Problems Debility (Acute) - Physical Exam Vitals/I&O's: Vital Signs Temp Pulse Resp BP Pulse Ox 97.2 F L 96 16 134/76 H 91 11/01/19 14:01 11/01/19 17:38 11/01/19 14:01 11/01/19 17:38 11/01/19 14:01 Oxygen Flow Rate (L/min) 97 Oxygen Delivery Method Room Air Weight: 70.8 kg Body Mass Index (BMI) 25.7 Intake and Output for Last 24 Hours 10/30/19 10/31/19 11/01/19 23:59 23:59 23:59 Intake Total 960 / 960 940 / 940 840 / 840 Output Total 100 / 100 200 / 200 200 / 200 Balance 860 / 860 740 / 740 640 / 640 Current Medications Acetaminophen (Tylenol) 1,000 mg PO Q6H PRN PRN PRN Reason: Pain Score 1-5/10 Last Admin: 11/01/19 10:54 Dose: 1,000 mg Documented by: Aspirin (Ecotrin) 81 mg PO DAILY@0800 [facility] Last Admin: 11/01/19 08:48 Dose: 81 mg Documented by: Atorvastatin Calcium (Lipitor) 10 mg PO DAILY@0600 [facility] Last Admin: 11/01/19 05:38 Dose: 10 mg Documented by: Bisacodyl (Dulcolax) 10 mg RECTAL DAILY PRN PRN Reason: Constipation Calamine/Phenol (Calmoseptine Ointment) 1 applic TOPICAL 0600,2200 [facility]; Protocol Last Admin: 11/01/19 20:23 Dose: 1 applicatio Documented by: Cholecalciferol (Vitamin D (25mcg)) 1,000 unit PO DAILY [facility] Last Admin: 11/01/19 05:37 Dose: 1,000 unit Documented by: Cyclobenzaprine HCl (Flexeril) 10 mg PO Q8H PRN PRN PRN Reason: MUSCLE SPASM Enoxaparin Sodium (Lovenox) 40 mg SC DAILY [facility] Stop: 11/03/19 06:01 Last Admin: 11/01/19 05:38 Dose: 40 mg Documented by: Indomethacin (Indocin) 25 mg PO TIDCM [facility] Last Admin: 11/01/19 17:38 Dose: 25 mg Documented by: Metoprolol Tartrate (Lopressor (Beta Zakia)) 12.5 mg PO BID [facility] Last Admin: 11/01/19 17:38 Dose: 12.5 mg Documented by: [facility]amin) [facility] Admin: 11/01/19 08:48 Dose: 1 tablet Documented by: Oxycodone HCl (Oxyir) 10 mg PO Q6H [facility] Last Admin: 11/01/19 20:22 Dose: 10 mg Documented by: Pantoprazole Sodium (Protonix) 20 mg PO DAILY [facility] Last Admin: 11/01/19 05:37 Dose: 20 mg Documented by: Polyethylene Glycol (Miralax) 17 gm PO DAILY [facility] Last Admin: 11/01/19 05:37 Dose: 17 gm Documented by: Polysaccharide Iron Complex (Ferrex 150) [facility] Last Admin: 11/01/19 08:48 Dose: 150 mg Documented by: Potassium Chloride (K-Dur) [facility] Last Admin: 11/01/19 08:48 Dose: 20 meq Documented by: Senna/Docusate Sodium (Senokot-S, Pamela-Colace) 2 tablet PO BID [facility] Last Admin: 11/01/19 17:38 Dose: 2 tablet Documented by: Sumatriptan Succinate (Imitrex) 6 mg SC DAILY PRN PRN Reason: MIGRAINE SYMPTOMS Tamsulosin HCl (Flomax) 0.4 mg PO DAILY [facility] Last Admin: 11/01/19 05:38 Dose: 0.4 mg Documented by: Tizanidine HCl (Zanaflex) 8 mg PO QHS [facility] Last Admin: 11/01/19 20:22 Dose: 8 mg Documented by: Tuberculin PPD (Tubersol, Aplisol, Ppd) 5 tu ID [id number] Stop: 11/02/19 10:01 Zolpidem Tartrate (Ambien (Generic)) 5 mg PO QHS [facility] Last Admin: 11/01/19 20:22 Dose: 5 mg Documented by: Discharge Diet: No Restrictions Discharge Activity: Return to Normal Activity, May Shower, Use Walker Weight Bearing Status: Weight bearing as tolerated Call your doctor if you observe: Fever of 101 or Higher, Inability to urinate, Inability to have a bowel movement, Shortness of breath, Chest pain, Uncontrolled pain Home Medications: Medications to take at Discharge Atorvastatin Calcium 10 mg PO DAILY 05/25/19 Metoprolol Tartrate 25 mg PO BID 05/25/19 Tamsulosin HCl 0.4 mg PO DAILY 05/25/19 Tizanidine HCl 4 mg PO BID 05/25/19 Zolpidem Tartrate [Ambien] 10 mg PO QHS 05/25/19 Aspirin E.C. [Ecotrin] 81 mg PO DAILY@0800 10/25/19 Multivitamin 1 ea PO DAILY 10/25/19 Prevacid 15mg 15 mg PO DAILY 10/25/19 Vitamin D 1,000 unit PO DAILY 10/25/19 Acetaminophen [Tylenol] 1,000 mg PO Q6H PRN PRN tablet 11/01/19 Cyclobenzaprine HCl 10 mg PO Q8H PRN PRN #30 tab 11/01/19 Indomethacin [Indomethacin ER] 75 mg PO DAILY #30 11/01/19 Iron Polysaccharide Complex [Ferrex 150] 150 mg PO DAILYCM #30 cap 11/01/19 Menthol/Lanolin/Calamine/Znox [Calmoseptine Ointment] 1 applic TOPICAL 0600,2200 tube 11/01/19 Oxycodone [Oxyir] 10 mg PO Q6H 7 Days #56 tab 11/01/19 Polyethylene Glycol 3350 [Miralax] 17 gm PO DAILY #30 packet 11/01/19 Potassium Chloride [K-Dur] 20 meq PO DAILYCM #30 tab 11/01/19 Senna/Docusate Sodium [Senokot-S] 2 tab PO BID #120 tab 11/01/19 Following Prescriptions Were Given to Patient: Cyclobenzaprine HCl 10 mg PO Q8H PRN PRN #30 tab PRN Reason: Muscle Spasm Transmission Status: Pending to [facility] [place] [address] Iron Polysaccharide Complex [Ferrex 150] 150 mg PO DAILYCM #30 cap Transmission Status: Pending to [facility] [facility] Indomethacin [Indomethacin ER] 75 mg PO DAILY #30 Potassium Chloride [K-Dur] 20 meq PO DAILYCM #30 tab Transmission Status: Pending to [facility] [facility] Polyethylene Glycol 3350 [Miralax] 17 gm PO DAILY #30 packet Transmission Status: Pending to [facility] [place] [address] Oxycodone [Oxyir] 10 mg PO Q6H 7 Days #56 tab Prescription Printed Senna/Docusate Sodium [Senokot-S] 2 tab PO BID #120 tab Transmission Status: Pending to [facility] [facility] Primary Care Physician: Mauro Palomino [Other] Please follow up with your Primary Care Physician in: 1 week. Please Follow Up With: [facility] When: 2 weeks. Disposition: Home Minutes spent on discharge:: 30 Patient Condition:: Stable Medical Necessity - Tobacco Use Smoking Status: Current every day smoker Tobacco Use: Cigarettes - 1.5 pack per day. Meaningful Use Info Meaningful Use Diagnoses (Choose all that apply): None applicable
[2019-11-02] MEDS: oxyCODONE 5 MG Tablet 10 MG PO ×4 (01:48→21:19)
[2019-11-02 05:38] LABS: Absolute Lymphocyte Count 2.16 X10^3/uL (0.83-4.51); Absolute Neutrophil Count 4.3 X10^3/uL (2.0-7.7); Basophil# 0.06 X10^3/uL; Basophil% 0.8 % (0-1); Eosinophil# 0.19 X10^3/uL; Eosinophils% 2.6 % (0-5); Hematocrit 31.1 % (40-54); Hemoglobin 10.4 g/dL (13.0-16.5); Lymphocyte # 2.16 X10^3/ul (4.0); Lymphocyte % 29.1 % (19-41); Mean Corp Hgb Conc 33.4 g/dL (32-36); Mean Corpuscular Volume 92.8 fL (80-94); Mean Platelet Vol. 9.2 fl (6.2-12.0); Monocyte# 0.66 X10^3/uL; Monocyte% 8.9 % (0-10); NRBC Flagged by Analyzer 0 % (0-5); Neutrophil # 4.32 X10^3/uL (2.7-7.7); Neutrophil % 58.3 % (47-70); Platelet Count 221 K/mm3 (150-450); RBC Distribution Width CV 17.1 % (11.6-14.6); Red Blood Count 3.35 M/mm3 (4.6-6.2); White Blood Count 7.4 K/mm3 (4.4-11.0)
[2019-11-02 05:57] LABS: Anion Gap 4 (5-15); BUN 30 mg/dL (7-18); BUN/Creat Ratio 27.8 RATIO (10-20); Calcium,Total 8.8 mg/dL (8.5-10.1); Chloride 106 mmol/L (98-107); Creatinine, Serum 1.08 mg/dL (0.70-1.30); EST Glomerular Filtration Rate 71 mL/min (>60); Est Glom Filt Rate - Afr Amer 85 mL/min (>60); Estimated Creatinine Clearance 52.51 ml/min; Glucose 89 mg/dL (74-106); Potassium 4.3 mmol/L (3.5-5.1); Sodium Level 138 mmol/L (136-145)
[2019-11-02 06:13] VITALS: BP 162/85; PULSE 90
[2019-11-02] MEDS: Polyethylene Glycol 3350 17 GM PACKET PO (06:13)
[2019-11-02] MEDS: Metoprolol Tartrate 25 MG Tablet 12.5 MG PO ×2 (06:13→17:04)
[2019-11-02] MEDS: Senna/Docusate Sodium 1 Tablet 2 TABLET PO ×2 (06:13→17:04)
[2019-11-02] MEDS: Atorvastatin Calcium 10 MG Tablet PO (06:13)
[2019-11-02] MEDS: Tamsulosin HCl 0.4 MG Capsule PO (06:13)
[2019-11-02] MEDS: Enoxaparin 40 MG/0.4 ML Syringe SC (06:13)
[2019-11-02] MEDS: Pantoprazole Sodium 20 MG Tablet PO (06:14)
[2019-11-02 06:17] VITALS: RESP 16; TEMP 36.7; O2SAT 94
[2019-11-02] MEDS: Menthol/Lanolin/Calamine/Znox 113 GM Tube 1 APPLIC TOPICAL ×2 (06:17→21:21)
[2019-11-02] MEDS: Aspirin E.C. 81 MG Tablet PO (08:24)
[2019-11-02] MEDS: Multivitamins,Therapeutic Tablet 1 TABLET PO (08:24)
[2019-11-02] MEDS: Indomethacin 25 MG Capsule PO ×3 (08:24→17:04)
[2019-11-02] MEDS: Iron Polysaccharide Complex 150 MG CAPSULE PO (08:24)
--- NOTE | 2019-11-02 13:39 | NURSING ---
family/friend updated on patent. will be picked up for d/c tomarrow at 10:30.
[2019-11-02 14:06] VITALS: BP 160/93; PULSE 102; RESP 16; TEMP 36.3; O2SAT 93
[2019-11-02 17:04] VITALS: BP 160/93; PULSE 102
[2019-11-02 21:15] VITALS: PULSE 88; RESP 16; O2SAT 97
[2019-11-02] MEDS: Zolpidem Tartrate 5 MG Tablet PO (21:19)
[2019-11-02] MEDS: tiZANidine HCl 2 MG Tablet 8 MG PO (21:20)
[2019-11-03] MEDS: oxyCODONE 5 MG Tablet 10 MG PO ×2 (01:30→07:39)
[2019-11-03 05:00] VITALS: BP 166/69; PULSE 88; RESP 16; TEMP 36.9; O2SAT 95
[2019-11-03 06:00] VITALS: BP 166/69; PULSE 88
[2019-11-03] MEDS: Pantoprazole Sodium 20 MG Tablet PO (06:00)
[2019-11-03] MEDS: Metoprolol Tartrate 25 MG Tablet 12.5 MG PO (06:00)
[2019-11-03] MEDS: Enoxaparin 40 MG/0.4 ML Syringe SC (06:00)
[2019-11-03] MEDS: Tamsulosin HCl 0.4 MG Capsule PO (06:01)
[2019-11-03] MEDS: Senna/Docusate Sodium 1 Tablet 2 TABLET PO (06:01)
[2019-11-03] MEDS: Atorvastatin Calcium 10 MG Tablet PO (06:01)
[2019-11-03] MEDS: Aspirin E.C. 81 MG Tablet PO (07:36)
[2019-11-03] MEDS: Iron Polysaccharide Complex 150 MG CAPSULE PO (07:36)
[2019-11-03] MEDS: Indomethacin 25 MG Capsule PO (07:37)
[2019-11-03] MEDS: Multivitamins,Therapeutic Tablet 1 TABLET PO (07:37)
[2019-11-03 09:33] VITALS: PULSE 83; RESP 16; O2SAT 97
[2019-11-03] MEDS: SUMAtriptan 6 MG/0.5 ML Vial SC (09:40)
[2019-11-03 10:50] VITALS: BP 149/67; PULSE 83; RESP 16; TEMP 36.6; O2SAT 97
--- NOTE | 2019-11-03 12:18 | MDS.RN ---
Information for the mds was obtained from review of the clinical record, interview of resident, staff, and direct observation of resident's care.
== END 2019-11-03 10:30 | disposition home or self-care (01) | DRG 561 ==
PROVIDERS: Admitting Provider Family Medicine Geriatric Medicine; Referring Provider Family Medicine Geriatric Medicine; Visit Provider Family Medicine Geriatric Medicine
DX: Z47.1 Aftercare following joint replacement surgery (principal); Z96.652 Presence of left artificial knee joint; K21.9 Gastro-esophageal reflux disease without esophagitis; I25.10 Atherosclerotic heart disease of native coronary artery without angina pectoris; E78.5 Hyperlipidemia, unspecified; E55.9 Vitamin D deficiency, unspecified; I10 Essential (primary) hypertension; N40.0 Benign prostatic hyperplasia without lower urinary tract symptoms; M21.372 Foot drop, left foot; G89.29 Other chronic pain; F17.210 Nicotine dependence, cigarettes, uncomplicated
CPT/HCPCS: 36415; 80048; 85025; 87635; 94799; 97110; 97116; 97162; 97166; 97530; 97535; 97802; J3030; U0003

== ENCOUNTER 2019-11-25 10:30 | Outpatient (RCR) | payer MEDICARE, SELFPAY ==
--- NOTE | 2019-11-12 09:18 | HP.PTEVAL ---
Patient's Visit Information ALLA MENDOZA is a 74 year old M referred to Physical Therapy by Dr. James Vieira MD with a diagnosis of LEFT TKR. Date of Evaluation: 11/12/19 Physical Therapist: Abdifatah Pereira, PT, Cert MDT, OCS - Visit Plan Frequency: 3x /Week Duration: 3 Weeks Plan: PATIENT HAS MULTIPLE COMORBITIES WITH H/O OF LEFT DROP FOOT USES AFO. AMBULATES WITH FWW. PT INTERVENTIONS FOCUS ON ROM (AROM/PROM,FLEXABLITY,PRE'S QUAD/HAMS/HIP,,GAIT AND BALANCE/GAIT TRAINING - Subjective This 74 y/o male presents to physical therapy with left TKR. Patient underwent s/p left TKR done by DR Contreras at [facility] done 10/20/19 d/c to Rehab at [facility] [place] . Patient d/c to home 10/31 to home. Patient has had left knee pain many years . Patient had right THR about 1 1/2 ago. Patient has stiffness and soreness knee . Patient taking oxycodine. Patient uses FWW . Patient has h/o drop foot many years ago from accident uses AFO. . Patient patient lives in basement and plan to live in appartment 10 steps. Patient I with bathing /dresssing. Patient c/o parathesia/tingling knee. Patient condtion affects ADL'S,housework tasks and function. Patient surgery affects QOL. SOCIAL: single. VOCATION: retired - Pain Left Knee Pain Intensity (Out of 10): 7 Pain Intensity Range: 10 - Objective POSTURE: mild foward posture. GAIT: ambulates with fww with decrease stance time RLE and swing phase during gait. BALANCE:fair + with fww. SKIN: well approximate crusty ,sterry stripes intact,mild errthymia. EDEMA: joint line 43.2 knee. STAIRS: one steps at time with rails. AROM: 15- 85 degrees supine knee flexion. MMT: quads/hams/hip fllexion/abd 3+/5,ankle 4/5 R,LEFT 1/5 - Goals Goal 1:: Patient to be I with HEP Goal Time Frame: 4-6 Weeks Goal 2:: Patient to ambulate with least restrictive device with improved gait pattern community distances. Goal Time Frame: 4-6 Weeks Goal 3:: Patient to increase AROM knne flexion 5-105 degrees or > to improve with gait Goal Time Frame: 4-6 Weeks Goal 4:: Patient increase strength quads/hams/hip 4-/5 to impove function with gait. Goal Time Frame: 4-6 Weeks Goal 5:: Patient to improve LFES score by 8-10 points or > to improve function and QOL, Goal Time Frame: 4-6 Weeks Goal 6:: Patient improve dynamic balance good-. Goal Time Frame: 4-6 Weeks - Rehabilitation Potential Physical Therapy Diagnosis: This patient underwent s/p left TKR with pain,decrease ROM,strength , gait ,balance and stairs which impairs function thus benifit from skilled PT Rehabilitation Potential: Good - Anticipated Interventions Patient/Client Instruction: Educate patient on: Condition For the Purpose of:: To decrease pain, To increase ROM, To improve muscle performance and motor function, To improve ability to perform ADL's, To increase tolerance to activity/condition/position, To improve ability of physical actions for home/community/work/leisure, To improve health of tissue, To decrease soft tissue restriction, To improve balance, To improve safety with gait, To assume or resume ADL's Therapeutic Exercise to Include: Strength training, Endurance training, Balance training, Flexibilty training, Gait and locomotor training, Passive ROM, Active ROM Comment: QUADS/HAMS/HIP TENS: Yes IF ES: Yes Cryotherapy (ice pack, ice massage): Yes Thermo therapy (hot pack): Yes Ultrasound (thermal/non thermal): Yes For the Purpose of:: To decrease pain, To increase ROM, To improve nutrient delivery to tissue, To increase oxygenation perfusion, To improve health of tissue, To decrease soft tissue restriction Thank you for the opportunity to evaluate your patient. For Medicare and Medicare HMO plans, please review the plan of care and approve it. It will need to be FAXED BACK to us at [phone] for Medicare purposes. For Medicare only, by signing this I certify the plan of care. Please let me know if there are questions or concerns regarding this plan of care. Physician Signature: Date:
== END 2019-11-25 19:00 | disposition home or self-care (01) ==
LOC: PT 10:30
PROVIDERS: Visit Provider Family Medicine Geriatric Medicine
DX: Z96.652 Presence of left artificial knee joint (principal)
CPT/HCPCS: 97110; 97162